=== PATIENT | male | born 1985 | race African-American/Black ===

== ENCOUNTER 2018-03-20 16:52 | Emergency (ER) | payer MEDICAID, OTHER ==
[~2018-03-20] VITALS: Ht 180.3 cm; Wt 100.0 kg
[2018-03-20] MEDS ORDERED: IBUPROFEN 600MG TABLET PO ONE (18:00)
[2018-03-20 18:59] VITALS: BP 134/72
== END 2018-03-20 18:58 | disposition home or self-care (01) ==
LOC: ER 16:52
DX: S16.1XXA Strain of muscle, fascia and tendon at neck level, initial encounter (principal); F17.200 Nicotine dependence, unspecified, uncomplicated; V49.88XA Car occupant (driver) (passenger) injured in other specified transport accidents, initial encounter; Y93.89 Activity, other specified; Y92.89 Other specified places as the place of occurrence of the external cause; Y99.8 Other external cause status
CPT/HCPCS: 99282

== ENCOUNTER 2018-12-15 15:31 | Emergency (ER) | payer BC, MEDICAID ==
[~2018-12-15] VITALS: Ht 180.3 cm; Wt 96.0 kg
[2018-12-15 17:08] LABS: CHLORIDE 109 mEq/L (98-107)
[2018-12-15 17:11] LABS: BASOPHILS % 0.6 % (0.0-2.0); EOSINOPHILS % 1.9 % (0.0-5.0); HEMATOCRIT. 42.2 % (42.0-52.0); HEMOGLOBIN. 14.4 g/dL (14.0-18.0); LYMPHOCYTES % 34.4 % (20.0-50.0); MEAN CORPUSCULAR HEMOGLOBIN 32.3 pg (28.0-32.0); MEAN CORPUSCULAR VOLUME 94.4 fL (80.0-94.0); MEAN PLATELET VOLUME 7.8 fl (7.4-10.4); MONOCYTES % 8.4 % (2.0-8.0); NEUTROPHILS % 54.7 % (40.0-76.0); PLATELET 258 x1000/uL (130-400); RED BLOOD CELL COUNT 4.47 mill/uL (4.7-6.1); RED CELL DISTRIBUTION WIDTH 13.1 % (11.6-14.6)
[2018-12-15 21:00] VITALS: BP 128/79
== END 2018-12-15 21:30 | disposition home or self-care (01) ==
LOC: ER 15:31
DX: R07.89 Other chest pain (principal); J45.909 Unspecified asthma, uncomplicated; R05 Cough; F12.10 Cannabis abuse, uncomplicated; F17.200 Nicotine dependence, unspecified, uncomplicated
CPT/HCPCS: 36415; 71045; 83880; 84484; 93005; 99284